=== PATIENT | male | born 1955 | race Asian ===

== ENCOUNTER 2021-04-30 14:12 | Emergency (ER) | payer OTHER ==
[~2021-04-30] VITALS: Ht 177.8 cm; Wt 61.7 kg
[2021-04-30 14:15] VITALS: TEMP 97.3
[2021-04-30 15:30] LABS: PLATELET COUNT 83 K/uL (142-355)
[2021-04-30 15:39] LABS: POTASSIUM 3.5 mmol/L (3.6-5.2)
[2021-04-30 16:20] LABS: PARTIAL THROMBOPLASTIN TIME 30.5 SECONDS (24.5-33.6)
[2021-04-30 17:00] VITALS: BP 188/81
== END 2021-04-30 17:03 | disposition home or self-care (01) ==
LOC: ED 14:12
PROVIDERS: Emergency Medicine
DX: I10 Essential (primary) hypertension (principal); N18.6 End stage renal disease; Z99.2 Dependence on renal dialysis
CPT/HCPCS: 36415; 80053; 83880; 84484; 85027; 85610; 85730; 93005; 96374; 99284; J0360

== ENCOUNTER 2021-06-06 10:02 | Emergency (ER) | payer OTHER ==
[~2021-06-06] VITALS: Ht 177.8 cm; Wt 58.5 kg
[2021-06-06 10:10] VITALS: TEMP 98
[2021-06-06 10:51] LABS: PLATELET COUNT 178 K/uL (142-355)
[2021-06-06 10:54] LABS: POTASSIUM 4.2 mmol/L (3.6-5.2)
[2021-06-06 13:15] VITALS: BP 193/86
== END 2021-06-06 13:56 | disposition home or self-care (01) ==
LOC: ED 10:02
PROVIDERS: Emergency Medicine
DX: R41.82 Altered mental status, unspecified (principal); I69.352 Hemiplegia and hemiparesis following cerebral infarction affecting left dominant side; I10 Essential (primary) hypertension; F17.200 Nicotine dependence, unspecified, uncomplicated
CPT/HCPCS: 80048; 85027; 93005; 99283

== ENCOUNTER 2022-01-24 13:48 | Emergency (ER) | payer OTHER ==
[~2022-01-24] VITALS: Ht 177.8 cm; Wt 63.5 kg
[2022-01-24 13:48] VITALS: TEMP 98.7
[2022-01-24 14:29] LABS: PLATELET COUNT 152 K/uL (142-355)
[2022-01-24 14:39] LABS: POTASSIUM 2.8 mmol/L (3.6-5.2); SODIUM 135 mmol/L (136-145)
[2022-01-24 18:00] VITALS: BP 145/45
== END 2022-01-24 18:13 | disposition home or self-care (01) ==
LOC: ED 13:48
PROVIDERS: Family Medicine
DX: N45.4 Abscess of epididymis or testis (principal); N18.6 End stage renal disease; Z99.2 Dependence on renal dialysis; F03.90 Unspecified dementia, unspecified severity, without behavioral disturbance, psychotic disturbance, mood disturbance, and anxiety; Z98.890 Other specified postprocedural states
CPT/HCPCS: 80053; 85027; 87040; 87070; 87077; 87186; 87205; 99285

== ENCOUNTER 2022-04-11 14:08 | Emergency (ER) | payer OTHER ==
[~2022-04-11] VITALS: Ht 177.8 cm; Wt 68.0 kg
[2022-04-11 14:10] VITALS: BP 169/68; TEMP 98
[2022-04-11 15:00] LABS: PLATELET COUNT 172 K/uL (142-355)
== END 2022-04-11 18:25 | disposition home or self-care (01) ==
LOC: ED 14:08
PROVIDERS: Emergency Medicine
DX: R41.0 Disorientation, unspecified (principal)
CPT/HCPCS: 80053; 84484; 85027; 93005; 99283

== ENCOUNTER 2022-09-12 14:29 | Outpatient (CLI) | payer OTHER | END 2022-09-12 19:42 | disposition home or self-care (01) | LOC: LAB 14:29 | PROVIDERS: ATTEND Internal Medicine Nephrology | DX: D64.89 Other specified anemias (principal); N18.6 End stage renal disease | CPT/HCPCS: 85014; 85018 ==